=== PATIENT | female | born 1985 | race Caucasian/White ===

== ENCOUNTER 2017-06-22 11:15 | Inpatient (IN) | payer OTHER ==
[2017-06-22] VITALS (72 sets, daily range): BP systolic 124–147; BP diastolic 68–102; PULSE 68–101; RESP 18; TEMP 97.9
[~2017-06-22] VITALS: Ht 167.6 cm; Wt 82.0 kg
[~2017-06-22 11:15] MED LIST: Z.0.BCPILL PO; [UNRECOGNIZED DRUG - CODE] PO
--- NOTE | 2017-06-22 11:59 | PD ---
HPI Chief Complaint Postdates Date Seen: Jun 22, 2017 Time Seen: 11:40 Travel History International Travel<30 Days: No Contact w/Intl Traveler<30Days: No Known Affected Area: No History of Present Illness HPI Mrs. Adkins is a 32-year-old G1 at 41 weeks and 1 day gestation who presented to ED for ultrasound assessment due to postdates. Patient was is followed by nAdreea Carrillo who checked her this morning and she was 1 cm dilated. She is known GBS positive. Patient denies gush of fluid, vaginal bleeding (but does report some pink discharge), no change in movement, and no contractions. Patient reporting no complications during this other than chronically elevated diastolic blood pressure (diastolic pressure in the 80s). She has not been medically treated for this. Otherwise she has no other medical problems. She is not reporting any abdominal pain, fevers or chills, chest pain shortness of breath. Patient is reporting bilateral de Quervain's tenosynovitis during this . History Past Medical History Medical History: Denies Significant Hx Obstetric History Obstetric History Followed by Andreea Carrillo. Known to be GBS positive No other complications during this Past Surgical History Narrative Surgical Had left pinky reconstruction surgery in the after she "cut her finger off " Family History Narrative Family History Hypertension in her father Social History Narrative Social History Lives with her and 2 step daughters Denies alcohol, tobacco, drug use during this Former smoker but none during this Allergies-Medications (Allergen,Severity, Reaction): Coded Allergies: No Known Allergies (Verified , 05/17/11) Home Meds Active Scripts Acetaminophen W/ Codeine (Tylenol #2) Tab, 1 TAB PO Q6HPRN, #15 Prov:Bina Moya MD 05/17/11 Reported Medications Miscellaneous ( Control Pills) Tab, 1 TAB PO DAILY 05/17/11 Review of Systems Except as stated in HPI: all other systems reviewed are Neg Physical Exam Narrative GENERAL: Well-nourished, well-developed patient. SKIN: Warm and dry. HEAD: Normocephalic and atraumatic. EYES: No scleral icterus. No injection or drainage. ENT: No nasal drainage noted. Mucous membranes pink. Airway patent. NECK: Supple, trachea midline. No JVD. CARDIOVASCULAR: Regular rate and rhythm without murmurs, gallops, or rubs. RESPIRATORY: Breath sounds equal bilaterally. No accessory muscle use. BREASTS: Bilateral exam showed no masses , no retractions, no nipple discharge. ABDOMEN/GI: Abdomen soft, non-tender, bowel sounds present, no rebound, no guarding Gravid to 41 weeks size GENITOURINARY: Deferred cervical check since patient was examined earlier this morning. Found to be 1 cm dilated at that time FHT's: Category: Category 1 Baseline: 125 Reactive: Yes Variability: Moderate Decels: Absent EXTREMITIES: No cyanosis or edema. BACK: Nontender without obvious deformity. No CVA tenderness. NEUROLOGICAL: Awake and alert. Motor and sensory grossly within normal limits. Five out of 5 muscle strength in all muscle groups. Normal speech. Data Data Orders Orders Vital Signs (Adult) .ON ADMISSION (06/22/17 11:44) ^ Labor Status (06/22/17 11:44) ^ Non Stress Test (06/22/17 11:44) ^ Hydration (06/22/17 11:44) Us Ob Bpp Wo Nst (06/22/17 11:44) MDM Plan Ms. Adkins is a 32-year-old G1 at 41 weeks and 1 day gestation who is presenting to the OB ED for a ultrasound assessment and BPP due to postdates. Patient is known to be GBS positive 1. Postdates -Patient seen by Andreea Carrillo. Cervical check this morning found her to be 1 cm dilated -With patient being postdates and not wanting to be induced today, BPP with ultrasound is warranted -We will put FHT on and assess baby as well as monitor for contractions -Follow up ultrasound results and proceed as indicated Addendum: Ultrasound results were benign. Patient was found to have elevated blood pressures several systolic readings in the 140s and several diastolics in the 90s. Urine protein creatinine ratio was found to be elevated at 0.33. She'll now be admitted for elevated blood pressures and abnormal preeclampsia labs and and will likely undergo induction of labor Addendum: Patient now showing contractions every 2-[address] Sood Diagnosis Diagnosis: Primary Impression: Post-dates Additional Impression: Elevated blood pressure affecting in third trimester, antepartum Ernie Fernandez MD R1 Jun 22, 2017 11:59
[2017-06-22 12:38] LABS: ANION GAP 10 MEQ/L (5-15); AST (GOT) 16 U/L (15-37); BICARBONATE 20.7 MEQ/L (21.0-32.0); BLOOD UREA NITROGEN 11 MG/DL (7-18); CHLORIDE 105 MEQ/L (98-107); GLOMERULAR FILTRATION RATE 128 ML/MIN (>89); POTASSIUM 3.7 MEQ/L (3.5-5.1); SODIUM (NA) 136 MEQ/L (136-145); URIC ACID 3.9 MG/DL (2.6-6.0)
[2017-06-22 12:39] LABS: ALT (GPT) 14 U/L (10-53)
[2017-06-22 12:41] LABS: ALKALINE PHOSPHATASE 161 U/L (45-117); TOTAL BILIRUBIN ADULT 0.3 MG/DL (0.2-1.0)
[2017-06-22 15:04] LABS: HEMATOCRIT 38.1 % (35.0-46.0); MEAN CELL VOLUME 91.3 FL (80.0-100.0); MEAN CORPUSCULAR HEMOGLOBIN 30.8 PG (27.0-34.0); MEAN CORPUSCULAR HGB CONC 33.7 % (32.0-36.0); PLATELET COUNT 178 TH/MM3 (150-450); RED BLOOD COUNT 4.17 MIL/MM3 (4.00-5.30); RED CELL DISTRIBUTION WIDTH 14.2 % (11.6-17.2); REVIEW FLAG FINAL
[2017-06-22 15:27] LABS: BACTERIA, URINE RARE /hpf; BLOOD, URINE TRACE (NEG); COMMENT (UR) CULT NOT INDICATED; CULTURE IF INDICATED CULT NOT INDICATED; GLUCOSE,URINE NEG (NEG); KETONE, URINE NEG (NEG); MUCUS URINE FEW /lpf (OCC); NITRITE,URINE NEG (NEG); PH, URINE 5.5 (5.0-8.5); SQUAMOUS EPITHELIAL CELL URINE 3 /hpf (0-5); URINE COLOR LIGHT-YELLOW (YELLW/STRAW)
[2017-06-22] MEDS ORDERED: LACTATED RINGER'S 1000 ML INJ 1,000 ML IV PRN (16:45)
[2017-06-22] MEDS ORDERED: MINERAL OIL 10 ML VIAL TOPICAL PRN (16:45)
[2017-06-22] MEDS ORDERED: ONDANSETRON HCL 4 MG/2 ML VIAL IV PUSH PRN (16:45)
[2017-06-22] MEDS ORDERED: CITRIC ACID-SODIUM CITRATE LIQ 30 ML UDC PO SCH (16:45)
[2017-06-22] MEDS ORDERED: LIDOCAINE HCL 1% 50 ML VIAL INFIL PRN (16:45)
[2017-06-22] MEDS ORDERED: OXYTOCIN 30 UNITS-500ML PREMIX 500 ML IV ONE (16:45)
[2017-06-22] MEDS ORDERED: SODIUM CHLORID 0.9% 500 ML INJ 500 ML IV PRN (16:45)
[2017-06-22] MEDS ORDERED: LIDOCAINE HCL 1% 50 ML VIAL I-DERMAL PRN (16:45)
--- NOTE | 2017-06-22 16:45 | HHI.HP ---
History & Physical H&P HPI Chief Complaint Postdates Date Seen: Jun 22, 2017 Time Seen: 11:40 Travel History International Travel<30 Days: No Contact w/Intl Traveler<30Days: No Known Affected Area: No History of Present Illness HPI Mrs. Adkins is a 32-year-old G1 at 41 weeks and 1 day gestation who presented to ED for ultrasound assessment due to postdates. Patient was is followed by Andreea Carrillo who checked her this morning and she was 1 cm dilated. She is known GBS positive. Patient denies gush of fluid, vaginal bleeding (but does report some pink discharge), no change in movement, and no contractions. Patient reporting no complications during this other than chronically elevated diastolic blood pressure (diastolic pressure in the 80s). She has not been medically treated for this. Otherwise she has no other medical problems. She is not reporting any abdominal pain, fevers or chills, chest pain shortness of breath. Patient is reporting bilateral de Quervain's tenosynovitis during this . History (Limited) History Past Medical History Medical History: Denies Significant Hx Obstetric History Obstetric History Followed by Andreea Carrillo. Known to be GBS positive No other complications during this Past Surgical History Narrative Surgical Had left pinky reconstruction surgery in the after she "cut her finger off " Family History Narrative Family History Hypertension in her father Social History Narrative Social History Lives with her and 2 step daughters Denies alcohol, tobacco, drug use during this Former smoker but none during this Allergies-Medications Allergies-Medications (Allergen,Severity, Reaction): Coded Allergies: No Known Allergies (Verified , 05/17/11) Home Meds Active Scripts Acetaminophen W/ Codeine (Tylenol #2) Tab, 1 TAB PO Q6HPRN, #15 Prov:Bina Moya MD 05/17/11 Reported Medications Miscellaneous ( Control Pills) Tab, 1 TAB PO DAILY 05/17/11 ROS Review of Systems Except as stated in HPI: all other systems reviewed are Neg Physical Exam Physical Exam Narrative GENERAL: Well-nourished, well-developed patient. SKIN: Warm and dry. HEAD: Normocephalic and atraumatic. EYES: No scleral icterus. No injection or drainage. ENT: No nasal drainage noted. Mucous membranes pink. Airway patent. NECK: Supple, trachea midline. No JVD. CARDIOVASCULAR: Regular rate and rhythm without murmurs, gallops, or rubs. RESPIRATORY: Breath sounds equal bilaterally. No accessory muscle use. BREASTS: Bilateral exam showed no masses , no retractions, no nipple discharge. ABDOMEN/GI: Abdomen soft, non-tender, bowel sounds present, no rebound, no guarding Gravid to 41 weeks size GENITOURINARY: Deferred cervical check since patient was examined earlier this morning. Found to be 1 cm dilated at that time FHT's: Category: Category 1 Baseline: 125 Reactive: Yes Variability: Moderate Decels: Absent EXTREMITIES: No cyanosis or edema. BACK: Nontender without obvious deformity. No CVA tenderness. NEUROLOGICAL: Awake and alert. Motor and sensory grossly within normal limits. Five out of 5 muscle strength in all muscle groups. Normal speech. Data Data Data Orders Orders Vital Signs (Adult) .ON ADMISSION (06/22/17 11:44) ^ Labor Status (06/22/17 11:44) ^ Non Stress Test (06/22/17 11:44) ^ Hydration (06/22/17 11:44) Us Ob Bpp Wo Nst (06/22/17 11:44) MDM MDM Plan Ms. Adkins is a 32-year-old G1 at 41 weeks and 1 day gestation who is presenting to the OB ED for a ultrasound assessment and BPP due to postdates. Patient is known to be GBS positive 1. Postdates -Patient seen by Andreea Carrillo. Cervical check this morning found her to be 1 cm dilated -With patient being postdates and not wanting to be induced today, BPP with ultrasound is warranted -We will put FHT on and assess baby as well as monitor for contractions -Follow up ultrasound results and proceed as indicated Addendum: Ultrasound results were benign. Patient was found to have elevated blood pressures several systolic readings in the 140s and several diastolics in the 90s. Urine protein creatinine ratio was found to be elevated at 0.33. She'll now be admitted for elevated blood pressures and abnormal preeclampsia labs and and will likely undergo induction of labor. Will need prophylactic penicillin for GBS positive status when she undergoes labor Addendum: Patient now showing contractions every 2-[address] Sood Diagnosis Diagnosis: Primary Impression: Post-dates Additional Impression: Elevated blood pressure affecting in third trimester, antepartum Fernandez,Ernie B MD R1 Jun 22, 2017 11:59 (Ernie Fernandez MD R1) H&P Patient was seen personally by me several times in the afternoon. She initially preferred to wait for induction of labor until she was closer to 42 weeks, however was amenable to medical recommendations. She underwent a biophysical profile which was 8 out of 8 with estimate a weight of 8 pounds, 3 ounces. She had a reactive NST. However during her evaluation. She had some elevated blood pressures in the 140s over 90s. Preeclampsia labs were sent which revealed an elevated PC ratio. The patient was counseled at length about her concerns with discharging her for expectant management with these mildly elevated blood pressures and elevated protein creatinine ratio. We discussed in brief the risks of discharge home. We discussed the risks of admission and induction of labor. We discussed the various alternatives to induction of labor including the risks, benefits, and alternatives of Cytotec versus Cervidil versus [place] bulb versus oxytocin. We discussed the risks of , and the risks and indications of delivery. We discussed the goal for healthy mother and followed by the goal of a vaginal delivery. However we did discuss that we would perform a delivery if necessary to obtain a healthy infant healthy mother. The patient and her are in agreement with induction of labor. The patient requested a meal prior to the start of induction which will be allowed based on reassuring testing.. Due to the frequency of her contractions, although she is not feeling them, we will proceed with Cervidil based on protocol. Patient has reassuring heart rate tracing and all of her questions were answered. (Bridgett Sood MD) Ernie Fernandez MD R1 Jun 22, 2017 16:45 Bridgett Sood MD Jun 23, 2017 10:08
[2017-06-22] MEDS ORDERED: DINOPROSTONE 10 MG VAG INSERT VAGINAL ONE (17:00)
[2017-06-22] MEDS ORDERED: SODIUM CHLOR 0.9% 1000 ML INJ 1,000 ML IV PRN (17:05)
[2017-06-22] MEDS: LACTATED RINGER'S 1000 ML INJ 1,000 ML IV SCH (17:44)
[2017-06-22] MEDS ORDERED: ACETAMINOPHEN 325 MG TAB PO PRN (21:45)
[2017-06-23] VITALS (156 sets, daily range): BP systolic 100–146; BP diastolic 46–93; PULSE 78–109; RESP 18; TEMP 97.8–99.5; O2SAT 95–99
[2017-06-23] MEDS: LACTATED RINGER'S 1000 ML INJ 1,000 ML IV SCH ×2 (02:34→16:25)
[2017-06-23] MEDS ORDERED: PENICILLIN G POT 5,000,000 UNITS/NS 100 ML(Mini-Bag Plus) IV ONE ×2 (07:00)
[2017-06-23] MEDS ORDERED: OXYTOCIN 30 UNITS/NS 500ML PREMIX IV SCH (07:15)
[2017-06-23] MEDS ORDERED: INFLUENZA VIRUS VACCINE (QUADRIVALENT) 0.5 ML SYR IM ONE (10:00)
--- NOTE | 2017-06-23 10:03 | HHI.PR ---
Subjective Remarks [facility] Subjective:, Patient reports she is feeling well overall but having painful contractions Objective: VSS, AF FHT: heart tones are in the 120s with moderate long-term variability, good accelerations, and no decelerations noted [place]: Every 2-3 minutes SVE: 3/-1/SROM with examination with meconium noted Assessment/plan: 1. IUP at 41.2 2. Induction of labor: Status post Cervidil, now on oxytocin and with SROM 3. GBS positive: Continue penicillin 4. well-being: Reassuring testing with reactive NST/category 1 tracing. Patient now with SROM, will monitor heart tones closely for variable decelerations or any other concerning heart tracing. Objective Vital Signs Date Time Temp Pulse Resp B/P (MAP) Pulse Ox O2 Delivery O2 Flow Rate FiO2 06/23/17 09:40 87 06/23/17 09:35 91 117/63 (81) 06/23/17 09:35 92 06/23/17 09:34 18 06/23/17 09:30 92 06/23/17 09:25 96 06/23/17 09:20 88 06/23/17 09:15 90 06/23/17 09:10 88 06/23/17 09:05 91 06/23/17 09:00 87 06/23/17 08:50 91 06/23/17 08:45 98 06/23/17 08:40 96 06/23/17 08:35 103 06/23/17 08:30 90 06/23/17 08:30 98.4 06/23/17 08:25 91 06/23/17 08:20 84 06/23/17 08:15 87 06/23/17 08:15 92 134/86 (102) 06/23/17 08:05 90 06/23/17 07:55 98 06/23/17 07:50 88 06/23/17 07:45 89 06/23/17 07:43 89 124/69 (87) 06/23/17 07:42 18 06/23/17 07:40 90 06/23/17 07:35 93 06/23/17 07:30 85 06/23/17 06:50 91 06/23/17 06:45 89 06/23/17 06:40 88 06/23/17 06:35 91 06/23/17 06:30 93 06/23/17 06:25 92 06/23/17 06:15 97 06/23/17 06:10 102 06/23/17 06:05 93 06/23/17 06:00 96 06/23/17 05:40 88 06/23/17 05:35 85 06/23/17 05:30 92 06/23/17 05:25 86 06/23/17 05:15 86 06/23/17 05:15 18 06/23/17 05:10 85 06/23/17 05:05 84 06/23/17 04:50 83 06/23/17 04:45 83 06/23/17 04:40 86 06/23/17 04:30 88 06/23/17 04:25 89 06/23/17 04:20 95 06/23/17 04:15 89 06/23/17 04:15 87 131/80 (97) 06/23/17 04:14 98.0 18 06/23/17 04:10 91 06/23/17 04:00 92 06/23/17 03:45 90 06/23/17 03:35 84 06/23/17 03:30 87 06/23/17 03:25 83 06/23/17 03:20 85 06/23/17 03:15 84 06/23/17 03:05 85 06/23/17 03:00 86 06/23/17 02:50 86 06/23/17 02:45 86 06/23/17 02:40 92 06/23/17 02:35 91 06/23/17 02:30 91 06/23/17 02:25 88 06/23/17 02:20 91 06/23/17 02:10 89 06/23/17 02:05 91 06/23/17 02:00 93 06/23/17 01:55 96 06/23/17 01:45 85 06/23/17 01:40 92 06/23/17 01:35 92 06/23/17 01:30 82 06/23/17 01:25 83 06/23/17 01:20 85 06/23/17 01:15 85 06/23/17 01:10 87 06/23/17 01:05 91 06/23/17 01:00 89 06/23/17 00:55 88 06/23/17 00:50 95 06/23/17 00:45 85 06/23/17 00:35 86 06/23/17 00:32 85 130/71 (90) 06/23/17 00:31 97.8 18 06/23/17 00:30 90 06/23/17 00:25 82 06/23/17 00:20 81 06/23/17 00:15 82 06/23/17 00:10 82 06/23/17 00:05 86 06/23/17 00:00 90 06/22/17 23:55 90 06/22/17 23:45 87 06/22/17 23:40 86 06/22/17 23:35 87 06/22/17 23:30 83 06/22/17 23:20 83 06/22/17 23:15 83 06/22/17 23:10 85 06/22/17 23:05 86 06/22/17 23:00 88 06/22/17 22:55 85 06/22/17 22:50 99 06/22/17 22:45 76 06/22/17 22:40 79 06/22/17 22:35 78 06/22/17 22:30 75 06/22/17 22:23 18 06/22/17 22:20 77 06/22/17 22:15 74 06/22/17 22:10 75 06/22/17 22:05 75 06/22/17 21:55 77 06/22/17 21:40 78 06/22/17 21:25 76 06/22/17 21:20 79 06/22/17 21:15 78 06/22/17 21:10 82 06/22/17 21:05 80 06/22/17 21:00 81 06/22/17 20:55 89 06/22/17 20:50 85 06/22/17 20:45 81 06/22/17 20:35 83 06/22/17 20:30 78 06/22/17 20:20 87 06/22/17 20:15 83 06/22/17 20:12 80 125/68 (87) 06/22/17 20:11 97.9 18 06/22/17 20:10 80 06/22/17 20:05 85 06/22/17 20:00 83 06/22/17 19:55 78 06/22/17 19:50 80 06/22/17 19:45 85 06/22/17 19:25 85 06/22/17 19:10 79 06/22/17 19:05 74 06/22/17 18:55 87 06/22/17 18:40 75 06/22/17 18:35 78 06/22/17 18:30 74 06/22/17 18:25 76 06/22/17 18:20 78 06/22/17 18:15 75 06/22/17 18:10 79 06/22/17 18:05 85 06/22/17 18:00 86 06/22/17 17:55 101 06/22/17 17:50 84 06/22/17 17:45 77 06/22/17 17:25 79 06/22/17 17:20 82 06/22/17 17:15 85 06/22/17 17:10 80 06/22/17 17:03 18 06/22/17 17:03 70 134/81 (98) 06/22/17 14:19 68 146/92 (110) 06/22/17 14:18 68 147/102 (117) 06/22/17 13:00 78 124/79 (94) 06/22/17 12:46 74 138/80 (99) 06/22/17 12:30 87 140/82 (101) 06/22/17 12:15 84 129/85 (100) 06/22/17 12:11 81 140/91 (107) 06/22/17 11:55 80 141/91 (108) Result Diagram: 06/22/17 1425 06/22/17 1211 Bridgett Sood MD Jun 23, 2017 10:03
[2017-06-23] MEDS ORDERED: ePHEDrine/NS 25 MG/5 ML SYR ONE (10:43)
[2017-06-23] MEDS ORDERED: fentaNYL 2MCG-BUPIV 0.125% INJ 100 ML ONE (10:43)
[2017-06-23] MEDS: PENICILLIN G POT 2,500,000 UNITS/NS 100 ML IV SCH ×4 (12:05→16:25)
[2017-06-23] MEDS ORDERED: fentaNYL 2MCG-BUPIV 0.125% 100 ML EPIDURAL SCH (13:15)
[2017-06-23] MEDS ORDERED: ePHEDrine/NS 25 MG/5 ML SYR IV PUSH PRN (13:15)
[2017-06-23] MEDS ORDERED: DO NOT ADMINISTER ANTICOAGULANTS PRN (13:15)
[2017-06-23] MEDS ORDERED: NO SYSTEM NARCOTICS PRN (13:15)
[2017-06-23] MEDS ORDERED: MEASLES, MUMPS, RUBELLA VACCINE 0.5 ML VIAL SQ ONE (16:00)
[2017-06-23] MEDS ORDERED: DIPHTH/TETANUS/ACEL PERTUSSIS (BOOSTER) 0.5 ML VIAL/PFS IM ONE (16:00)
[2017-06-23] MEDS ORDERED: BUPIVACAINE HCL PF 0.25% 10 ML VIAL ONE (16:24)
--- NOTE | 2017-06-23 17:44 | PD.LABORPN ---
Subjective Subjective I have seen/examined pt throughout the day. Most recently, she was seen and is more comfortable s/p epidural redosing. Objective Vital Signs Vital Signs Date Time Temp Pulse Resp B/P (MAP) Pulse Ox O2 Delivery O2 Flow Rate FiO2 06/23/17 17:25 100 146/89 (108) 06/23/17 17:17 96 140/92 (108) 06/23/17 17:04 98.2 06/23/17 17:00 18 06/23/17 17:00 97 135/81 (99) 06/23/17 16:30 99 146/79 (101) 06/23/17 16:28 93 141/75 (97) 06/23/17 16:14 96 18 138/88 (105) 06/23/17 16:05 90 06/23/17 16:03 102 06/23/17 15:30 101 141/85 (103) 06/23/17 15:24 104 134/81 (98) 06/23/17 15:14 18 06/23/17 15:00 106 125/73 (90) 06/23/17 14:52 96 124/75 (91) 06/23/17 14:30 98 120/68 (85) 06/23/17 14:24 95 18 120/66 (84) 06/23/17 14:00 90 131/86 (101) 06/23/17 13:38 98.2 06/23/17 13:31 18 06/23/17 13:30 88 135/85 (102) 06/23/17 13:29 18 06/23/17 13:00 78 119/74 (89) 06/23/17 12:30 78 121/77 (92) 06/23/17 12:00 98 100/57 (71) 06/23/17 11:45 86 18 105/61 (76) 06/23/17 11:40 83 06/23/17 11:35 89 106/57 (73) 06/23/17 11:35 85 06/23/17 11:32 97 113/46 (68) 06/23/17 11:30 95 06/23/17 11:25 89 06/23/17 11:25 89 115/77 (90) 06/23/17 11:25 87 06/23/17 11:25 95 06/23/17 11:20 95 06/23/17 11:20 86 06/23/17 11:20 86 06/23/17 11:20 86 125/80 (95) 06/23/17 11:15 96 06/23/17 11:15 95 06/23/17 11:15 89 123/74 (90) 06/23/17 11:15 92 06/23/17 11:11 98.0 18 06/23/17 11:10 88 06/23/17 11:10 89 143/78 (99) 95 06/23/17 11:10 98 06/23/17 11:05 96 06/23/17 11:05 92 06/23/17 11:05 96 129/77 (94) 98 06/23/17 11:00 98 99 06/23/17 11:00 97 06/23/17 10:55 96 06/23/17 10:55 95 06/23/17 10:53 91 145/93 (110) 06/23/17 10:45 94 06/23/17 10:40 93 06/23/17 10:35 89 06/23/17 10:30 85 06/23/17 10:25 85 06/23/17 10:20 88 06/23/17 10:15 90 06/23/17 10:05 85 06/23/17 10:00 92 06/23/17 09:55 90 06/23/17 09:50 87 06/23/17 09:45 87 06/23/17 09:40 87 Objective FHTs: 140s, +accels, no decels, moderate variability, reactive [place]: ctx q2m on 16 of pitocin, adequate MVUs Cvx: catheter removed and cvx 9.5/100/+2 and cervix stretchy and reducible Weeks Gestation: 41 Gest Age Assessed Date: Jun 23, 2017 Pt started active labor?: Yes Active labor start date: Jun 23, 2017 Active labor start time: 12:00 Medical induction of labor?: Yes Medical induction start date: Jun 22, 2017 Medical induction start time: 12:00 Artificial rupture of membrane: No Assessment/Plan Assessment and Plan 32y/o G1 @ 41.2wks being induced for preE and postdates. -- FHTs cat 1 -- toco with RUC -- 9.5/100/+2 with reducible cervix -- RN instructed to initiate pushing Dandy Saleem MD Jun 23, 2017 17:44
--- NOTE | 2017-06-23 18:36 | PD.OB.DELI ---
Weeks gestation: 41 Gest age assessed date: Jun 23, 2017 Gest age assessed time: 12:00 Pt started active labor?: Yes Active labor start date: Jun 23, 2017 Active labor start time: 12:00 Medical induction of labor?: Yes Medical induction start date: Jun 22, 2017 Medical induction start time: 12:00 Artificial rupture of membrane: No Anesthesia: Epidural Episiotomy: None Vaginal Delivery: Normal, Spontaneous Presentation: Occiput anterior Nuchal Cord: None, x1 (loose body cord) Delayed cord clamping (45 sec): Yes Infant: Male Delivery date: Jun 23, 2017 Delivery time: 18:12 One Minute : 9 Five Minute : 9 Weight: 3500g Placenta: Manual removal, Intact, 3 vessel cord (b/l labial lacerations) Estimated blood loss: 250cc Additional Information b/l labial lacerations Dandy Saleem MD Jun 23, 2017 18:36
[2017-06-23] MEDS ORDERED: SODIUM CHLORIDE 0.9% FLUSH 10 ML FLUSH IV FLUSH PRN (18:45)
[2017-06-23] MEDS ORDERED: WITCH HAZEL 50%/GLYCERIN 12.5% 40 PAD JAR TOPICAL PRN (18:45)
[2017-06-23] MEDS ORDERED: ZOLPIDEM TARTRATE 5 MG TAB PO PRN (18:45)
[2017-06-23] MEDS ORDERED: OXYTOCIN 30 UNITS-500ML PREMIX 500 ML IV SCH (18:45)
[2017-06-23] MEDS ORDERED: ACETAMINOPHEN 325 MG TAB PO PRN (18:45)
[2017-06-23] MEDS ORDERED: BENZOCAINE 20% TOPICAL SPRAY 60 ML CAN TOPICAL PRN (18:45)
[2017-06-23] MEDS ORDERED: oxyCODONE/ACETAMINOPHEN 5 MG/325 MG TAB PO PRN (18:45)
[2017-06-23] MEDS ORDERED: ALUMINUM/MAGNESIUM/SIMETH 30 ML CUP PO PRN (18:45)
[2017-06-23] MEDS ORDERED: DOCUSATE SODIUM 50 MG/SENNA 8.6 MG TAB PO PRN (18:45)
[2017-06-23] MEDS ORDERED: ONDANSETRON ODT 4 MG TAB PO PRN (18:45)
[2017-06-23] MEDS ORDERED: SODIUM CHLORIDE 0.9% FLUSH 10 ML FLUSH IV FLUSH SCH (21:00)
--- NOTE | 2017-06-24 08:16 | HHI.OB ---
Subjective Remarks Patient is a 32-year-old delivered at 41 weeks and 2 days. Patient is day 1 after . Patient's pain is well-controlled. Patient reports eating and drinking without any nausea or vomiting. Patient reports minimal bleeding. Patient has passed gas but no bowel movements. Patient is walking without lower extremity pain or shortness of breath. Patient reports desire for contraception and breast-feeding. Objective Vitals/I&O Vital Signs Date Time Temp Pulse Resp B/P (MAP) Pulse Ox O2 Delivery O2 Flow Rate FiO2 06/23/17 20:15 98.3 94 18 112/66 (81) 06/23/17 19:31 103 131/83 (99) 06/23/17 19:16 109 126/67 (86) 06/23/17 19:13 18 06/23/17 19:11 99.5 06/23/17 19:01 106 135/75 (95) 06/23/17 18:50 18 06/23/17 18:46 107 135/70 (91) 06/23/17 18:44 18 06/23/17 18:39 105 124/86 (99) 06/23/17 17:25 100 146/89 (108) 06/23/17 17:17 96 140/92 (108) 06/23/17 17:04 98.2 06/23/17 17:00 18 06/23/17 17:00 97 135/81 (99) 06/23/17 16:30 99 146/79 (101) 06/23/17 16:28 93 141/75 (97) 06/23/17 16:14 96 18 138/88 (105) 06/23/17 16:05 90 06/23/17 16:03 102 06/23/17 15:30 101 141/85 (103) 06/23/17 15:24 104 134/81 (98) 06/23/17 15:14 18 06/23/17 15:00 106 125/73 (90) 06/23/17 14:52 96 124/75 (91) 06/23/17 14:30 98 120/68 (85) 06/23/17 14:24 95 18 120/66 (84) 06/23/17 14:00 90 131/86 (101) 06/23/17 13:38 98.2 06/23/17 13:31 18 06/23/17 13:30 88 135/85 (102) 06/23/17 13:29 18 06/23/17 13:00 78 119/74 (89) 06/23/17 12:30 78 121/77 (92) 06/23/17 12:00 98 100/57 (71) 06/23/17 11:45 86 18 105/61 (76) 06/23/17 11:40 83 06/23/17 11:35 89 106/57 (73) 06/23/17 11:35 85 06/23/17 11:32 97 113/46 (68) 06/23/17 11:30 95 06/23/17 11:25 89 06/23/17 11:25 89 115/77 (90) 06/23/17 11:25 87 06/23/17 11:25 95 06/23/17 11:20 95 06/23/17 11:20 86 06/23/17 11:20 86 06/23/17 11:20 86 125/80 (95) 06/23/17 11:15 96 06/23/17 11:15 95 06/23/17 11:15 89 123/74 (90) 06/23/17 11:15 92 06/23/17 11:11 98.0 18 06/23/17 11:10 88 06/23/17 11:10 89 143/78 (99) 95 06/23/17 11:10 98 06/23/17 11:05 96 06/23/17 11:05 92 06/23/17 11:05 96 129/77 (94) 98 06/23/17 11:00 98 99 06/23/17 11:00 97 06/23/17 10:55 96 06/23/17 10:55 95 06/23/17 10:53 91 145/93 (110) 06/23/17 10:45 94 06/23/17 10:40 93 06/23/17 10:35 89 06/23/17 10:30 85 06/23/17 10:25 85 06/23/17 10:20 88 06/23/17 10:15 90 06/23/17 10:05 85 06/23/17 10:00 92 06/23/17 09:55 90 06/23/17 09:50 87 06/23/17 09:45 87 06/23/17 09:40 87 06/23/17 09:35 91 117/63 (81) 06/23/17 09:35 92 06/23/17 09:34 18 06/23/17 09:30 92 06/23/17 09:25 96 06/23/17 09:20 88 06/23/17 09:15 90 06/23/17 09:10 88 06/23/17 09:05 91 06/23/17 09:00 87 06/23/17 08:50 91 06/23/17 08:45 98 06/23/17 08:40 96 06/23/17 08:35 103 06/23/17 08:30 90 06/23/17 08:30 98.4 06/23/17 08:25 91 06/23/17 08:20 84 06/23/17 08:15 87 06/23/17 08:15 92 134/86 (102) Objective Remarks GENERAL: Well-nourished, well-developed patient. CARDIOVASCULAR: Regular rate and rhythm without murmurs, gallops, or rubs. RESPIRATORY: Breath sounds equal bilaterally. No accessory muscle use. ABDOMEN/GI: Abdomen soft, non-tender. Fundus: Firm, non-tender at umbilicus. GENITOURINARY: Light to moderate bleeding. EXTREMITIES: No cyanosis or edema, non-tender, without signs of DVT. Medications and IVs Current Medications Medications (Trade) Dose Ordered Sig/Karolina Route Start Time Stop Time Status Last Admin (fentaNYL INJ) 50 mcg Q1H PRN IV PUSH 06/22/17 16:45 06/23/17 04:15 Miscellaneous Information No systemic narcotics to be given except... UNSCH PRN .XX 06/23/17 13:15 06/24/17 13:14 Miscellaneous Information DO NOT ADMINISTER ANY ANTICOAGUL... UNSCH PRN .XX 06/23/17 13:15 06/24/17 13:14 Fentanyl/ Bupivacaine HCl 100 ml @ 0 mls/hr TITRATE EPIDURAL 06/23/17 13:15 (ePHEDrine/NS 25 MG/5 ML SYR) 10 mg UNSCH PRN IV PUSH 06/23/17 13:15 06/24/17 13:14 (NS Flush) 2 ml BID IV FLUSH 06/23/17 21:00 (NS Flush) 2 ml UNSCH PRN IV FLUSH 06/23/17 18:45 (Tylenol) 650 mg Q4H PRN PO 06/23/17 18:45 (Percocet 5-325 Mg) 1 tab Q4H PRN PO 06/23/17 18:45 (Americaine 20% Top Spr) 1 spray Q4H PRN TOPICAL 06/23/17 18:45 (Tucks Pads) 1 applic QID PRN TOPICAL 06/23/17 18:45 (July-Colace) 2 tab Q12H PRN PO 06/23/17 18:45 (Ambien) 5 mg HS PRN PO 06/23/17 18:45 (Mag-Al Plus Susp Liq) 15 ml Q8H PRN PO 06/23/17 18:45 (Zofran Odt) 4 mg Q6H PRN PO 06/23/17 18:45 Assessment/Plan Assessment and Plan Patient is a 32-year-old delivered at 41 weeks and 2 days. Patient is day 1 after . Patient was counseled to do 6 weeks of pelvic rest. Patient was counseled to follow up in 6 weeks. Patient requested follow-up and contraception. --AF VSS --Continue routine care --Motrin and Percocet when necessary for pain --Encourage OOB --Pelvic rest for 6 weeks will need follow-up appointment at that time. --Contraception: Desires something for contraception, both like to think about it overnight before deciding --Anticipate discharge tomorrow Discharge Planning Likely discharge tomorrow Ernie Fernandez MD R1 Jun 24, 2017 08:16
[2017-06-24 08:30] VITALS: BP 140/82; PULSE 76; RESP 18; TEMP 97.7
[2017-06-24 21:00] VITALS: BP 116/76; PULSE 78; RESP 18; TEMP 98.1
[2017-06-25] MEDS ORDERED: IBUP-1129 PO (07:50)
[2017-06-25] MEDS ORDERED: PERI PO (07:50)
--- NOTE | 2017-06-25 07:51 | HHI.DCPOC ---
Discharge Care Plan Diagnosis: (1) care following vaginal delivery Report Symptoms to Your Doctor -Temperature above 100.5 degrees -Redness, of incision or excessive or foul smelling drainage -Unusual pain or calf pain -Increased vaginal bleeding -Painful or difficulty urinating -Feelings of extreme sadness or anxiety after 2 weeks Goals to Promote Your Health * To prevent worsening of your condition and complications, follow up with your [facility] physician within 6 weeks for check. Directions to Meet Your Goals Take your medications as prescribed Follow your dietary instruction Follow activity as directed Ensure plenty of rest for recovery Drink fluids for hydration Keep your appointments as scheduled Take your immunizations and boosters as scheduled If your symptoms worsen call your PCP, if no PCP go to Urgent Care Center or Emergency Room Smoking is Dangerous to Your Health. Avoid second hand smoke Call the 24-hour crisis hotline for domestic abuse at [facility] Ale[place] MD R2 Jun 25, 2017 07:51
--- NOTE | 2017-06-25 08:06 | HHI.OB ---
Subjective Post Day: 2 Remarks 32-year-old delivered at 41 weeks and 2 days gestation day 2 after . Pain is well-controlled. Patient reports eating and drinking without any nausea or vomiting. Patient reports minimal bleeding. Endorses flatus. Patient is walking without lower extremity pain or shortness of breath. Patient specifically denies any fevers, CP, SOB, cough. Objective Vitals/I&O Vital Signs Date Time Temp Pulse Resp B/P (MAP) Pulse Ox O2 Delivery O2 Flow Rate FiO2 06/24/17 21:00 78 116/76 (89) 06/24/17 21:00 98.1 18 06/24/17 08:30 97.7 76 18 140/82 (101) Objective Remarks GENERAL: Well-nourished, well-developed patient. CARDIOVASCULAR: Regular rate and rhythm without murmurs, gallops, or rubs. RESPIRATORY: Breath sounds equal bilaterally. No accessory muscle use. ABDOMEN/GI: Abdomen soft, non-tender. Fundus: Firm, non-tender at umbilicus. GENITOURINARY: Light to moderate bleeding. EXTREMITIES: No cyanosis or edema, non-tender, without signs of DVT. Medications and IVs Current Medications Medications (Trade) Dose Ordered Sig/Karolina Route Start Time Stop Time Status Last Admin (fentaNYL INJ) 50 mcg Q1H PRN IV PUSH 06/22/17 16:45 06/23/17 04:15 Fentanyl/ Bupivacaine HCl 100 ml @ 0 mls/hr TITRATE EPIDURAL 06/23/17 13:15 (NS Flush) 2 ml BID IV FLUSH 06/23/17 21:00 (NS Flush) 2 ml UNSCH PRN IV FLUSH 06/23/17 18:45 (Tylenol) 650 mg Q4H PRN PO 06/23/17 18:45 (Percocet 5-325 Mg) 1 tab Q4H PRN PO 06/23/17 18:45 (Americaine 20% Top Spr) 1 spray Q4H PRN TOPICAL 06/23/17 18:45 (Tucks Pads) 1 applic QID PRN TOPICAL 06/23/17 18:45 (July-Colace) 2 tab Q12H PRN PO 06/23/17 18:45 (Ambien) 5 mg HS PRN PO 06/23/17 18:45 (Mag-Al Plus Susp Liq) 15 ml Q8H PRN PO 06/23/17 18:45 (Zofran Odt) 4 mg Q6H PRN PO 06/23/17 18:45 Assessment/Plan Assessment and Plan Patient is a 32-year-old delivered at 41 weeks and 2 days. Patient is day 2 after . Patient was counseled to do 6 weeks of pelvic rest. Patient was counseled to follow up in 6 weeks. Patient requested follow-up and contraception. --AF VSS --Continue routine care --Motrin and Percocet when necessary for pain --Encourage OOB --Pelvic rest for 6 weeks will need follow-up appointment at that time. --Contraception: Still contemplating options, advised to follow up with her OB/ [facility] provider --Stable for discharge today Discharge Planning Likely discharge tomorrow [place] Alejandra MD R2 Jun 25, 2017 08:06
== END 2017-06-25 17:10 | disposition home or self-care (01) | DRG 775 ==
LOC: HOBED 11:15 → H2EA 16:48 → H1EA 06-23 19:51
PROVIDERS: ADMIT Obstetrics & Gynecology; ATTEND Obstetrics & Gynecology
PROC: 10E0XZZ Delivery of Products of Conception, External Approach (ICD-10-PCS; principal; 2017-06-22)
PROC: 0HQ9XZZ Repair Perineum Skin, External Approach (ICD-10-PCS; 2017-06-22)
PROC: 00HU33Z Insertion of Infusion Device into Spinal Canal, Percutaneous Approach (ICD-10-PCS; 2017-06-22)
PROC: 3E0R3BZ Introduction of Anesthetic Agent into Spinal Canal, Percutaneous Approach (ICD-10-PCS; 2017-06-22)
DX: O76 Abnormality in fetal heart rate and rhythm complicating labor and delivery (principal); O48.0 Post-term pregnancy; O26.893 Other specified pregnancy related conditions, third trimester; Z37.0 Single live birth; O99.824 Streptococcus B carrier state complicating childbirth; O70.0 First degree perineal laceration during delivery; M65.4 Radial styloid tenosynovitis [de Quervain]; Z87.891 Personal history of nicotine dependence; Z3A.41 41 weeks gestation of pregnancy
CPT/HCPCS: 36415; 59025; 76816; 76819; 80053; 80307; 81001; 82570; 84156; 84550; 85027; 86850; 86900; 86901; 88307; 90686; J2405; J2540; J2590; J3010; J7120; Q2038